=== PATIENT | female | born 1935 | race Asian ===

== ENCOUNTER → 2017-04-30 | Outpatient (CLI) | payer OTHER ==
[~2017-04-30] MED LIST: ACET-1311 PO; ALUMSUS2 PO; AMLO-110 PO; CLC100 PO; FRRS300 PO; GLC5 PO; GLC850 PO; LISI40TA PO; LOPERAMIDE PO; MAGN400T6 PO; MAGNSUS5 PO; METO25TA56 PO; NMN10 PO; SIMV20TA2 PO; SYN25 PO; methimazole PO
[2017-04-30 10:49] LABS: BASO % 0.2 %; BASO ABS # 0.01 K/uL (0-0.2); COMPLETE YES; EOS % 5.9 %; HEMATOCRIT 35.1 % (37-47); IG% 0.2 %; LYMPH % 27.9 %; LYMPH ABS # 1.71 K/uL (1.2-3.4); MEAN CELL VOLUME 95.1 fL (80-100); MEAN CORPUSCULAR HEMOGLOBIN 31.7 pg (25-34); MEAN CORPUSCULAR HGB CONC 33.3 g/dl (32-36); MEAN PLATELET VOLUME 9.7 fL (7.4-10.4); MONO % 7.7 %; NEUT % 58.1 %; PLATELET COUNT 169 K/uL (130-400); RED BLOOD COUNT 3.69 M/uL (4.2-5.4); WHITE BLOOD COUNT 6.13 K/uL (4.8-10.8)
[2017-04-30 10:59] LABS: ALT/SGPT 10 U/L (12-78); AST/SGOT 10 U/L (15-37); BLOOD UREA NITROGEN 13 mg/dl (7-18); BUN/CREATININE RATIO 16.2 (10-20); CALCIUM 8.5 mg/dl (8.5-10.1); CARBON DIOXIDE 32 mmol/L (21-32); CHLORIDE 110 mmol/L (98-107); GLUCOSE 92 mg/dl (70-99); MAGNESIUM 1.9 mg/dl (1.8-2.4); POTASSIUM 3.9 mmol/L (3.5-5.1); SODIUM 146 mmol/L (136-145)
[2017-04-30 11:10] LABS: ALKALINE PHOSPHATASE 149 U/L (45-117); THYROID STIMULATING HORMONE 0.999 uIu/ml (0.300-4.500)
[2017-04-30 11:30] LABS: ESTIMATED AVERAGE GLUCOSE 117 mg/dl; HA1C FLAG Normal (Normal)
== END ==
LOC: C.LABUPHEI 09:50
PROVIDERS: ATTEND Nurse Practitioner Family
DX: I50.40 Unspecified combined systolic (congestive) and diastolic (congestive) heart failure (principal); E11.9 Type 2 diabetes mellitus without complications; I15.9 Secondary hypertension, unspecified; E03.9 Hypothyroidism, unspecified

== ENCOUNTER → 2017-05-26 | Outpatient (CLI) | payer OTHER | LOC: C.LABUPHEI 08:37 | PROVIDERS: ATTEND Nurse Practitioner Family | DX: M62.81 Muscle weakness (generalized) (principal); Z13.89 Encounter for screening for other disorder ==

== ENCOUNTER → 2017-06-01 | Outpatient (CLI) | payer OTHER ==
[2017-06-01 09:28] LABS: BASO % 0.2 %; BASO ABS # 0.01 K/uL (0-0.2); COMPLETE YES; EOS % 5.4 %; IG% 0.3 %; LYMPH % 29.1 %; LYMPH ABS # 1.71 K/uL (1.2-3.4); MEAN CORPUSCULAR HGB CONC 31.6 g/dl (32-36); MEAN PLATELET VOLUME 9.6 fL (7.4-10.4); MONO % 7.7 %; NEUT % 57.3 %; PLATELET COUNT 158 K/uL (130-400); RED BLOOD COUNT 3.37 M/uL (4.2-5.4); WHITE BLOOD COUNT 5.88 K/uL (4.8-10.8)
== END ==
LOC: C.LABUPHEI 08:39
PROVIDERS: ATTEND Family Medicine
DX: I15.9 Secondary hypertension, unspecified (principal)

== ENCOUNTER → 2017-07-31 | Outpatient (CLI) | payer OTHER ==
[2017-07-31 10:22] LABS: ALT/SGPT 12 U/L (12-78); BLOOD UREA NITROGEN 13 mg/dl (7-18); BUN/CREATININE RATIO 15.2 (10-20); CALCIUM 8.7 mg/dl (8.5-10.1); CARBON DIOXIDE 30 mmol/L (21-32); CHLORIDE 106 mmol/L (98-107); CREATININE 0.88 mg/dl (0.60-1.20); GLUCOSE 93 mg/dl (70-99); POTASSIUM 4.2 mmol/L (3.5-5.1); SODIUM 142 mmol/L (136-145)
[2017-07-31 10:25] LABS: ALKALINE PHOSPHATASE 122 U/L (45-117); AST/SGOT 11 U/L (15-37)
[2017-07-31 10:55] LABS: ESTIMATED AVERAGE GLUCOSE 140 mg/dl; HA1C FLAG Normal (Normal)
== END ==
LOC: C.LABUPHEI 09:16
PROVIDERS: ATTEND Nurse Practitioner Family
DX: E11.9 Type 2 diabetes mellitus without complications (principal); D64.9 Anemia, unspecified

== ENCOUNTER → 2017-08-13 | Outpatient (CLI) | payer OTHER | END | disposition home or self-care (01) | LOC: C.LABUPHEI 08:43 | PROVIDERS: ATTEND Nurse Practitioner Family | DX: E03.9 Hypothyroidism, unspecified (principal) ==